=== PATIENT | female | born 1980 | race Caucasian/White ===

== ENCOUNTER 2017-02-21 10:05 | Emergency (ER) | payer MEDICAID ==
[~2017-02-21] VITALS: Ht 165.1 cm; Wt 88.5 kg
[~2017-02-21 10:05] MED LIST: ACE500 PO; AZIT500T47 PO; BUTA1CAP6 PO; CEPH-13 PO; CLIN300C99 PO; DIP5L PO; HYDR-4309 PO; LOR5/325 PO; METF-420 PO; OMEP40CA48 PO; OND4 PO; ONDA4TAB PO; OSE75 PO; PER PO; PHEN-580 PO; PREN-85 PO; PROC-35 PO; SERT-173 PO
--- NOTE | 2017-02-21 10:07 | ER Report ---
History and Physical Time Seen By MD: 10:06 HPI/ROS CC: Chest congestion with fever HPI: 36-year-old female with 2 day history of progressively getting worse of chest congestion and yellow productive cough. She has been taking Tylenol and ibuprofen for the body aches. Her pain on the body aches is a 7 out of 10. 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 She denies any nausea vomiting, diarrhea, slight shortness of breath. No nuchal rigidity. She does have a sore throat. Her appetite has been decreased but she has been taking fluids. Activity makes it worse rest makes it better. ROS: 12 point review of systems essentially negative other than what's mentioned in history of present illness. NURSES AND OLD MEDICAL RECORDS: Reviewed PMH: Reviewed SURGICAL HX: Reviewed FAMILY HX: Noncontributory SOCIAL HX: She denies illicit drugs. She was on. VITAL SIGNS: Reviewed CONSTITUTIONAL: 36-year-old female in moderate distress. PHYSICAL EXAM: HEENT: Pupils equal round reactive to light and accommodate, EOMI, tympanic membranes reddened and bulging with decreased light reflex. Lips dry mucous membranes moist gums nonbleeding uvula midline and rises equally with phonation, oropharynx noninjected, teeth intact. NECK: Neck supple, thyroid not appreciated, anterior and posterior cervical lymphadenopathy not appreciated. Trachea midline and rises equally with phonation. CARDIAC: S1-S2 regular rate rhythm no murmurs rubs or gallops. LUNGS: Lungs coarse bilaterally posteriorly in all [place]. Good air movement. ABDOMEN: Abdomen soft, nondistended, bowel sounds active in all 4 quadrants, no bruits noted, no CVA tenderness. MUSCULOSKELETAL: Strength 5 out of 5 x 4 extremities, no deformities noted. NEUROLOGIC: Patient alert and oriented by 3 Allergies: Coded Allergies: amoxicillin (Verified Allergy, Mild, UNKNOWN, 04/02/16) metoclopramide (Verified Allergy, Mild, HALLUCINATIONS, 04/02/16) promethazine (Verified Allergy, Mild, MAKES ME CRAZY, 04/02/16) Home Meds Discontinued Scripts Clindamycin Hcl (CLINDAMYCIN HCL) 300 Mg Capsule, 300 MG PO Q6H, #40 CAPSULE Prov:CORAZON EVANS MD 04/02/16 Hx Smoking: Yes (1/2 PPD) Smoking Status: Current: Every Day Smoker Exposure to Second Hand Smoke?: Yes Hx Substance Use Disorder: No Constitutional Vital Sign - Last 24 Hours 02/21/17 10:12 Temp 100.4 Pulse 98 Resp 14 B/P (MAP) 116/69 Pulse Ox 87 Medical Decision Making ED Course/Re-evaluation ED Course Patient most likely has lower respiratory tract infection. Patient placed on Zithromax and follow-up with PCP. Patient will plan and in agreement. Re-evaluation MDM pneumonia, pertussis, respiratory tract infection. This is most likely a lower respiratory tract infection. Decision to Disposition Date: Feb 21, 2017 Decision to Disposition Time: 11:09 Depart Departure Latest Vital Signs Vital Signs Date Time Temp Pulse Resp B/P (MAP) Pulse Ox O2 Delivery O2 Flow Rate FiO2 02/21/17 10:12 100.4 98 14 116/69 87 Impression: Primary Impression: Respiratory tract infection Condition: Condition Unchanged Disposition: HOME OR SELF-CARE Referrals: ROBERT QURESHI MD (PCP) New Scripts Azithromycin (ZITHROMAX) 250 Mg Tablet 0 PO QDAY, #6 TAB 1 Refill Prov: LINNETTE MARINELLI MD 02/21/17 Patient Instructions: Upper Respiratory Infection (ED) Additional Instructions: You have been Given Zithromax take as directed. Follow-up with your regular physician. I and the staff wanted to thank you for allowing us to take care of your needs today in the emergency department at [facility]. We have tried to answer all of your questions and concerns. Please feel free to return to the emergency department for any further concerns or unanswered questions. LINNETTE MARINELLI MD Feb 21, 2017 10:07
[2017-02-21] MEDS ORDERED: AZIT-1 PO (11:11)
[2017-02-21 11:18] VITALS: BP 118/52
== END 2017-02-21 11:28 | disposition home or self-care (01) ==
LOC: ER 10:05
DX: J98.8 Other specified respiratory disorders (principal)
CPT/HCPCS: 99283

== ENCOUNTER 2017-09-27 00:15 | Emergency (ER) | payer MEDICAID ==
[~2017-09-27 00:15] MED LIST changes: +AZIT-1 PO; -METF-420 PO; +METF-421 PO
--- NOTE | 2017-09-27 00:20 | ER Report ---
History and Physical Time Seen By MD: 00:20 HPI/ROS CHIEF COMPLAINT: Back pain HISTORY OF PRESENT ILLNESS: Patient is a 37-year-old female who presents to the emergency department for evaluation of lower back pain. Pain is severe in nature and made worse by movement better at rest. Pain is located along the right paraspinal muscle group. She does experience radiation of pain down the leg. She does feel some numbness into the leg as well. She denies any history of traumatic injury. She states that symptoms began approximately 4 days ago when she woke from sleep. Patient thinks that she may have slept wrong. She was seen at the [facility] and prescribed Flexeril which seems to help with some of her symptoms but the pain seems to be worsening. She denies any fevers or chills. She denies any urinary symptoms including frequency, burning with urination she denies any abnormal vaginal discharge. She has no personal history of cancer. REVIEW OF SYSTEMS: Respiratory: No cough, no dyspnea. Cardiovascular: No chest pain, no palpitations. Gastrointestinal: No vomiting, no abdominal pain. Musculoskeletal: Back pain Allergies: Coded Allergies: amoxicillin (Verified Allergy, Mild, UNKNOWN, 09/27/17) metoclopramide (Verified Allergy, Mild, HALLUCINATIONS, 09/27/17) promethazine (Verified Allergy, Mild, MAKES ME CRAZY, 09/27/17) Home Meds Active Scripts Hydrocodone Bit/Acetaminophen (HYDROCODON-ACETAMINOPHEN 5-325) 1 Each Tablet, 1 EACH PO Q4-6H Y for PAIN, #12 TAB 0 Refills TAKE ONE TABLET BY MOUTH EVERY 4-6 HOURS NEEDED FOR PAIN Prov:YASMANY COVINGTON MD 09/27/17 Reported Medications Metformin Hcl (METFORMIN HCL) 1,000 Mg Tablet, 1 TAB PO BID, TAB 09/27/17 Discontinued Scripts Azithromycin (ZITHROMAX) 250 Mg Tablet, 0 PO QDAY, #6 TAB 1 Refill Prov:LINNETTE MARINELLI MD 02/21/17 Past Medical/Surgical History Noncontributory towards his chief complaint Hx Smoking: Yes (1/2 PPD) Smoking Status: Current: Every Day Smoker Exposure to Second Hand Smoke?: Yes Hx Substance Use Disorder: No Constitutional Vital Sign - Last 24 Hours 09/27/17 00:19 Temp 98.0 Pulse 63 Resp 16 B/P (MAP) 110/59 Pulse Ox 95 O2 Delivery Room Air Physical Exam General appearance: alert no distress. Back: Thoracic spine has no spinal or paraspinal tenderness to palpation. Lumbar spine has no spinal tenderness moderateparaspinal tenderness Gastroinal: Abdomen is soft, non tender, no masses.. Skin: No lesions and no rashes. Vascular: Normal capillary refill and pulses to feet. Neurological: Motor function: leg strength normal and symmetric for both legs Sensory function: normal for all leg dermatomes. Straight leg raise negative to 70 degrees. Reflexes normal bilaterally on legs. [ ] DIFFERENTIAL DIAGNOSIS: After history and physical exam differential diagnosis was considered for back pain including muscular strain, herniated disc, intra- abdominal and renal causes. Medical Decision Making Data Points Laboratory Hematology Test 09/27/17 00:40 Urine Color Yellow Urine Clarity Clear Urine pH 5.0 pH (4.8-9.5) Urine Specific Hiram 1.021 Urine Protein Negative mg/dL (NEGATIVE) Urine Glucose (UA) Negative mg/dL (NEGATIVE) Urine Ketones Negative mg/dL (NEGATIVE) Urine Blood Negative (NEGATIVE) Urine Nitrite Negative (NEGATIVE) Urine Bilirubin Negative (NEGATIVE) Urine Urobilinogen 2.0 mg/dL (0.2-1.9) Urine Leukocyte Esterase Negative (NEGATIVE) Urine RBC 1 /HPF (0-2/HPF) Urine WBC 1 /HPF (0-5/HPF) Urine Squamous Epithelial Cells Many /LPF (</=FEW) Urine Calcium Oxalate Crystals Few /HPF (NONE) Urine Bacteria Negative /HPF (NONE-FEW) Urine Mucus Few /HPF (NONE-FEW) Urine HCG, Qualitative Negative (NEGATIVE) Chemistry Test 09/27/17 00:40 Urine Color Yellow Urine Clarity Clear Urine pH 5.0 pH (4.8-9.5) Urine Specific Hiram 1.021 Urine Protein Negative mg/dL (NEGATIVE) Urine Glucose (UA) Negative mg/dL (NEGATIVE) Urine Ketones Negative mg/dL (NEGATIVE) Urine Blood Negative (NEGATIVE) Urine Nitrite Negative (NEGATIVE) Urine Bilirubin Negative (NEGATIVE) Urine Urobilinogen 2.0 mg/dL (0.2-1.9) Urine Leukocyte Esterase Negative (NEGATIVE) Urine RBC 1 /HPF (0-2/HPF) Urine WBC 1 /HPF (0-5/HPF) Urine Squamous Epithelial Cells Many /LPF (</=FEW) Urine Calcium Oxalate Crystals Few /HPF (NONE) Urine Bacteria Negative /HPF (NONE-FEW) Urine Mucus Few /HPF (NONE-FEW) Urine HCG, Qualitative Negative (NEGATIVE) Urinalysis Test 09/27/17 00:40 Urine Color Yellow Urine Clarity Clear Urine pH 5.0 pH (4.8-9.5) Urine Specific Hiram 1.021 Urine Protein Negative mg/dL (NEGATIVE) Urine Glucose (UA) Negative mg/dL (NEGATIVE) Urine Ketones Negative mg/dL (NEGATIVE) Urine Blood Negative (NEGATIVE) Urine Nitrite Negative (NEGATIVE) Urine Bilirubin Negative (NEGATIVE) Urine Urobilinogen 2.0 mg/dL (0.2-1.9) Urine Leukocyte Esterase Negative (NEGATIVE) Urine RBC 1 /HPF (0-2/HPF) Urine WBC 1 /HPF (0-5/HPF) Urine Squamous Epithelial Cells Many /LPF (</=FEW) Urine Calcium Oxalate Crystals Few /HPF (NONE) Urine Bacteria Negative /HPF (NONE-FEW) Urine Mucus Few /HPF (NONE-FEW) Urine HCG, Qualitative Negative (NEGATIVE) EKG/Imaging Imaging FACILITY: [facility] [place] PATIENT NAME: Bella Bustillo : 1980 MR: [id number] V: [id number] EXAM DATE: ORDERING PHYSICIAN: YASMANY COVINGTON TECHNOLOGIST: Location: [facility] Patient: Bella Bustillo : 1980 Visit/Account:[id number] Date of Sevice: 09/27/2017 COMPUTED TOMOGRAPHY ABDOMEN AND PELVIS WITHOUT INTRAVENOUS CONTRAST DATE OF EXAM: 09/27/2017 1:21 AM INDICATION: Right flank pain. COMPARISON: Same-day lumbar spine radiographs. TECHNIQUE: Noncontrast abdomen and pelvis CT performed. Sagittal and coronal reconstructions were performed. One of the following dose optimization techniques was utilized in the performance of this exam: Automated exposure control; adjustment of the mA and/or kV according to the patient's size; or use of an iterative reconstruction technique. Specific details can be referenced in the facility's radiology CT exam operational policy. FINDINGS: Lung bases: Mild atelectasis. Liver: No acute abnormality or suspicious lesion. Prominent right lobe of the liver may represent a Yonathan's lobe variant. Gallbladder and bile ducts: Normal. Spleen: Normal. Pancreas: Normal. Adrenals: Normal. Kidneys, ureters and bladder: Normal. Retroperitoneum and aorta: Normal. GI tract, mesentery and peritoneum: Normal, including normal appendix. Uterus and adnexa: Normal. Bones and soft tissues: Question right greater than left mild sacroiliitis. No focal lesion. IMPRESSION: Question right greater than left mild sacroiliitis. Otherwise unremarkable. Report Dictated By: Levon Gallagher MD at 09/27/2017 2:06 AM Report E-Signed By: Leovn Gallagher MD at 09/27/2017 2:14 AM WSN:[id number] ED Course/Re-evaluation ED Course 09/27/2017 12:36:55 am plan at this time will be to perform urinalysis and urine test will also order lumbar films in order oral pain medication. Decision to Disposition Date: Sep 27, 2017 Decision to Disposition Time: 02:24 Depart Departure Latest Vital Signs Vital Signs Date Time Temp Pulse Resp B/P (MAP) Pulse Ox O2 Delivery O2 Flow Rate FiO2 09/27/17 00:19 98.0 63 16 110/59 95 Room Air Impression: Primary Impression: Back pain Condition: Improved Disposition: HOME OR SELF-CARE Referrals: ROBRET QURESHI MD (PCP) New Scripts Hydrocodone Bit/Acetaminophen (HYDROCODON-ACETAMINOPHEN 5-325) 1 Each Tablet 1 EACH PO Q4-6H Y for PAIN, #12 TAB 0 Refills TAKE ONE TABLET BY MOUTH EVERY 4-6 HOURS NEEDED FOR PAIN Prov: YASMANY COVINGTON MD 09/27/17 Patient Instructions: Acute Low Back Pain (ED) Problem Qualifiers Primary Impression: Back pain Back pain location: low back pain Chronicity: acute Back pain laterality: right Sciatica presence: with sciatica Sciatica laterality: sciatica of right side Qualified Codes: M54.41 - Lumbago with sciatica, right side YASMANY COVINGTON MD Sep 27, 2017 00:20
[2017-09-27] MEDS ORDERED: METF-421 PO (00:25)
--- NOTE | 2017-09-27 01:21 | RADIOLOGY IMAGING REPORT ---
FACILITY: [facility] PATIENT NAME: Bella Bustillo : 1980 MR: [id number] V: [id number] EXAM DATE: ORDERING PHYSICIAN: YASMANY COVINGTON TECHNOLOGIST: Location: [facility] [place] Patient: Bella Bustillo : 1980 Visit/Account:[id number] Date of Sevice: 09/27/2017 Lumbar spine Indication: Pain x4 days. No known injury. Comparison: None available FINDINGS: 3 views of the lumbar spine were obtained. There are 5 lumbar type vertebral bodies. There is no acute osseous or acute alignment abnormality. No evidence of spondylolisthesis or spondylolysis. The vertebral body heights appear well-maintained. Mild leftward tilting of the lumbar spine. Normal lordosis. No visualized degenerative changes. IMPRESSION: 1. No acute osseous or acute alignment abnormality of the lumbar spine. Report Dictated By: Sergey Solorio MD at 09/27/2017 1:17 AM Report E-Signed By: Sergey Solorio MD at 09/27/2017 1:18 AM WSN:[id number]
--- NOTE | 2017-09-27 02:18 | RADIOLOGY IMAGING REPORT ---
FACILITY: [facility] PATIENT NAME: Bella Bustillo : 1980 MR: [id number] V: [id number] EXAM DATE: ORDERING PHYSICIAN: YASMANY COVINGTON TECHNOLOGIST: Location: [facility] - [place], [place] Patient: Bella Bustillo : 1980 Visit/Account:[id number] Date of Sevice: 09/27/2017 COMPUTED TOMOGRAPHY ABDOMEN AND PELVIS WITHOUT INTRAVENOUS CONTRAST DATE OF EXAM: 09/27/2017 1:21 AM INDICATION: Right flank pain. COMPARISON: Same-day lumbar spine radiographs. TECHNIQUE: Noncontrast abdomen and pelvis CT performed. Sagittal and coronal reconstructions were pe rformed. One of the following dose optimization techniques was utilized in the performance of this e xam: Automated exposure control; adjustment of the mA and/or kV according to the patient's size; or u se of an iterative reconstruction technique. Specific details can be referenced in the facility's r adiology CT exam operational policy. FINDINGS: Lung bases: Mild atelectasis. Liver: No acute abnormality or suspicious lesion. Prominent right lobe of the liver may represent a Yonathan's lobe variant. Gallbladder and bile ducts: Normal. Spleen: Normal. Pancreas: Normal. Adrenals: Normal. Kidneys, ureters and bladder: Normal. Retroperitoneum and aorta: Normal. GI tract, mesentery and peritoneum: Normal, including normal appendix. Uterus and adnexa: Normal. Bones and soft tissues: Question right greater than left mild sacroiliitis. No focal lesion. IMPRESSION: Question right greater than left mild sacroiliitis. Otherwise unremarkable. Report Dictated By: Levon Gallagher MD at 09/27/2017 2:06 AM Report E-Signed By: Levon Gallagher MD at 09/27/2017 2:14 AM WSN:[id number]
[2017-09-27] MEDS ORDERED: LOR5/325 PO (02:26)
[2017-09-27] MEDS ORDERED: ACET/HYDROC 5/325MG TH ER ONLY 2 TAB/BOTTLE PO ONE (02:30)
[2017-09-27 02:44] VITALS: BP 104/64
== END 2017-09-27 02:49 | disposition home or self-care (01) ==
LOC: ER 00:51
DX: M54.41 Lumbago with sciatica, right side (principal)
CPT/HCPCS: 72100; 74176; 81001; 81025; 99284

== ENCOUNTER 2017-10-09 09:57 | Outpatient (RCR) | payer MEDICAID ==
[~2017-10-09 09:57] MED LIST changes: +CYCL10TA29 PO; +DICL-192 PO; +HYDR-385 PO; -METF-421 PO; +METF-452 PO
--- NOTE | 2017-10-09 17:29 | PT INITIAL EVALUATION ---
MEDICAL DIAGNOSIS: back pain TREATMENT DIAGNOSIS: same DATE OF ONSET: 09/24/17 SUBJECTIVE: Bella Bustillo presents to physical therapy with complaints of low back pain that started approximately 2 weeks ago. She reports that she works two jobs one in the morning and one at night. She reports that her morning job is physically demanding and that her pm job is a sedentary job. She reports that she felt some pain following work about 2 weeks ago and the pain stuck around and has not reduced. She rates her pain to be 8/10 to 10/10 depending on her activities. She reports that the pain is worse in the morning, with bending, sitting, standing, and walking. She reports that the pain feels better with lying and as the day progresses. She denies any unexplained weight loss, accidents, and surgery. She reports that an xray was performed and the results were normal. She reports increased pain with coughing, sneezing, and straining. She denies any abnormal bladder control with the low back pain. Pain location is Central spinous process of L4-5 and described as sharp, achy. Pain scale is 8 on a ten point pain scale. 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 ROM: Trunk AROM: flexion: major restriction with painful end feel. extension: major restriction with painful end feel. side gliding R: minimal restriction with normal end feel. side gliding L: moderate restriction with normal end feel. Palpation: TTP: central spinous process of L3-5 Sensation: L2-S2 intact Special Tests: Repeated extension: pain during the test and better following the test (potential centralization), flexion: pain during the test and worse following the test with peripheralization. side gliding R: pain during the test and worse following the test with peripheralization. side gliding L: pain during the test and worse following with peripheralization down into L foot. Mobility: Independent Gait: She demonstrated antalgic gait, decreased B step lengths, decreased pelvic rotation, increased base of support, and decreased velocity. ASSESSMENT: Bella will benefit from skilled physical therapy addressing the listed impairments to improve function and QOL. Her provisional classification is derangement that seems to respond well with extension based principles. Short Term Goals 2 weeks: Pt will demonstrate directional preference to improve function and QOL. 3 weeks: Pt will demonstrate centralized low back pain to improve function and QOL. 5 weeks: Pt will demonstrated abolished low back pain with full trunk AROM in all directions. 6 weeks: Pt will demonstrate full return to prior level of function to improve QOL. Patient's Goals figure out the pain and then reduce the pain PLAN: Patient to be seen for Manual Therapy/STM/MET Strengthening/condition Ice/Heat Range of Motion Spinal Stabilization Work Hardening/Cond Stretching Neuromuscular Re-ed Closed Chain Program Electrical Stim Posture/Body mechanics Gait Trg/Balance Trg Home Exercise Program Therapeutic Activities 2x/Week for 6 Weeks If you have any questions, comments, or concerns about this report or plan, please contact me at . Thank you, Iker Marlow, PT, DPT MTDD
== END 2017-10-09 18:00 | disposition home or self-care (01) ==
LOC: PT 09:57
PROVIDERS: ATTEND Internal Medicine
DX: M54.5 Low back pain (principal)
CPT/HCPCS: 97163

== ENCOUNTER 2017-11-23 21:22 | Emergency (ER) | payer MEDICAID ==
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
[2017-11-23] MEDS ORDERED: NS(*) 0.9% 1000 ML BAG 1,000 ML IV ONE (21:35)
[2017-11-23] MEDS ORDERED: ONDANSETRON 4 MG/2 ML VIAL IVP ONE (21:35)
[2017-11-23] MEDS ORDERED: KETOROLAC 30 MG/ML VIAL IVP ONE (21:35)
[2017-11-23] MEDS ORDERED: DEXAMETHASONE SOD PHOS 10MG/ML IVP ONE (21:35)
[2017-11-23] MEDS ORDERED: diphenhydrAMINE 50 MG/ML VIAL IVP ONE (21:35)
[2017-11-23] MEDS ORDERED: MORPHINE 4 MG/ML SDV IVP ONE (22:40)
[2017-11-23 23:04] VITALS: BP 138/85
== END 2017-11-23 23:06 | disposition home or self-care (01) ==
LOC: ER 21:34
DX: G43.901 Migraine, unspecified, not intractable, with status migrainosus (principal); R11.10 Vomiting, unspecified; F17.210 Nicotine dependence, cigarettes, uncomplicated
CPT/HCPCS: 96374; 96375; 99284; J1100; J1200; J1885; J2270; J2405; J7030

== ENCOUNTER → 2018-01-03 | Outpatient (CLI) | payer MEDICAID ==
[~2018-01-03] MED LIST changes: -HYDR-4309 PO; +HYDR-653 PO
--- NOTE | 2018-01-03 11:11 | RADIOLOGY IMAGING REPORT ---
FACILITY: [facility] - [place] PATIENT NAME: Bella Bustillo : 1980 MR: [id number] V: [id number] EXAM DATE: ORDERING PHYSICIAN: EDWARD RODAS TECHNOLOGIST: [place] [facility] [place] Bella Bustillo : 1980 Visit/Account:[id number] Date of Sevice: 01/03/2018 BRAIN W/O CONTRAST Comparisons: None. Additional pertinent history: Migraines for 20 years. TECHNIQUE: Multiplanar, multisequence brain MRI was performed without gadolinium contrast. FINDINGS: Sagittal midline structures and craniocervical junction: Negative. Midline shift: None. Ventricles: Negative. Brain parenchyma: Diffusion weighted imaging: Negative. Gradient sequence: Negative. T2 weighted FLAIR images: Small focus of increased T2 signal involving the juxtacortical white franki er of the high posterior left parietal lobe of doubtful clinical significance given the solitary natu re of this finding. Otherwise negative Extra-axial spaces: Negative. Dural venous sinuses and major arterial flow voids: Negative. Mastoid air cells and paranasal sinuses: Small mucous retention cyst involving the right maxillary si nus. Surrounding soft tissues and orbits: Negative. Impression: 1. No evidence of acute intracranial pathology. Report Dictated By: Regulo Allen MD at 01/03/2018 11:02 AM Report E-Signed By: Regulo Allen MD at 01/03/2018 11:06 AM WSN:[id number]
== END ==
LOC: MRI 01:23
PROVIDERS: ATTEND Nurse Practitioner Family
DX: G43.119 Migraine with aura, intractable, without status migrainosus (principal)
CPT/HCPCS: 70551

== ENCOUNTER 2018-09-10 00:45 | Emergency (ER) | payer SELFPAY ==
--- NOTE | 2018-09-10 00:47 | ER Report ---
History and Physical Time Seen By MD: 00:43 HPI/FRANCESCA CHIEF COMPLAINT: Migraine headache HISTORY OF PRESENT ILLNESS: 37 year-old female presents with a migraine headache since yesterday morning. She thinks it was the absence of caffeine. She did take much caffeine yesterday afternoon which helped for a little bit. She took Excedrin Migraine around 10 PM and vomited. Her headache got much worse then she presented to the ER. She notes photophobia, nausea and vomiting. She denies fever or chills or stiff neck. Patient had a normal brain MRI in 12/2017. Patient's been seen in the ER for migraines before 10/2017. Patient states she had a piercing placed in her ear to reduce the frequency of her migraines. REVIEW OF SYSTEMS: Respiratory: No cough, no dyspnea. Cardiovascular: No chest pain, no palpitations. Gastrointestinal: As above Musculoskeletal: No back pain. Allergies: Coded Allergies: amoxicillin (Verified Allergy, Mild, UNKNOWN, 09/10/18) metoclopramide (Verified Allergy, Mild, HALLUCINATIONS, 09/10/18) promethazine (Verified Allergy, Mild, MAKES ME CRAZY, 09/10/18) Home Meds Active Scripts Ondansetron 4 Mg Odt (ONDANSETRON 4 MG ODT) 4 Mg Tab.rapdis, 4 MG PO Q6H PRN for NAUSEA/VOMITING, #10 TAB 1 Refill Prov:SAHIL MACHADO Amelia DO 09/10/18 Discontinued Reported Medications Metformin Hcl (METFORMIN HCL) 1,000 Mg Tablet, 1 TAB PO BID, TAB 09/27/17 Reviewed Nurses Notes: Yes Old Medical Records Reviewed: Yes Hx Smoking: Yes (1/2 PPD) Smoking Status: Current: Every Day Smoker Exposure to Second Hand Smoke?: Yes Hx Substance Use Disorder: No Constitutional Vital Sign - Last 24 Hours 09/10/18 09/10/18 09/10/18 09/10/18 00:46 00:48 01:00 01:20 Temp 98.0 Pulse 79 ??? Resp 16 B/P (MAP) 126/72 (90) 126/72 108/60 (76) Pulse Ox 92 O2 Delivery Room Air 09/10/18 09/10/18 09/10/18 09/10/18 01:30 01:50 02:00 02:20 Pulse 56 B/P (MAP) 90/60 (70) 101/70 (80) Pulse Ox 95 90 09/10/18 09/10/18 02:30 02:35 Pulse 58 B/P (MAP) 98/53 (68) Pulse Ox 90 Intake and Output 09/09/18 09/09/18 09/10/18 15:02 23:02 07:02 Intake Total 1000 ml Balance 1000 ml Physical Exam Vital signs stable, afebrile, pulse ox normal General Appearance: The patient is alert, has no immediate need for airway protection and no signs of toxicity. Moderate distress Eyes: Pupils equal and round no pallor or injection.+ Photophobia ENT, Mouth: Mucous membranes are moist. Respiratory: There are no retractions, lungs are clear to auscultation. Cardiovascular: Regular rate and rhythm. Gastrointestinal: Abdomen is soft and non tender, no masses, bowel sounds normal. 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 Musculoskeletal: Neck is supple non tender. Extremities are nontender, nonswollen and have full range of motion. DIFFERENTIAL DIAGNOSIS: After history and physical exam differential diagnosis was considered for headache including but not limited to subarachnoid hemorrhage, migraine headache, tension headache and infectious causes such as meningitis, pharyngitis and sinusitis. Medical Decision Making ED Course/Re-evaluation Clinical Indication for ER IV: Hydration, IV Access ED Course Patient was admitted to an examination room. H&P was done. The differential diagnosis was considered. Patient with classical migraine for her. She is treated with IV fluid hydration, Zofran, Toradol, Benadryl 25 mg, Decadron 10 mg and morphine 2 mg. After observation. Approximate 2 hour. She's much improved. She would like to go home. She is advised to follow-up with primary care for further treatment of her migraines. Decision to Disposition Date: Sep 10, 2018 Decision to Disposition Time: 01:52 Depart Departure Latest Vital Signs Vital Signs Date Time Temp Pulse Resp B/P (MAP) Pulse Ox O2 Delivery O2 Flow Rate FiO2 09/10/18 02:35 58 90 09/10/18 02:30 98/53 (68) 09/10/18 00:48 98.0 16 Room Air Impression: Primary Impression: Migraine headache Condition: Improved Disposition: HOME OR SELF-CARE New Scripts Ondansetron 4 Mg Odt (ONDANSETRON 4 MG ODT) 4 Mg Tab.rapdis 4 MG PO Q6H PRN for NAUSEA/VOMITING, #10 TAB 1 Refill Prov: SAHIL MACHADO DO 09/10/18 Patient Instructions: Migraine Headache (ED) Additional Instructions: Follow-up with your primary care for further treatment of her migraines Problem Qualifiers Primary Impression: Migraine headache Migraine type: unspecified Status migrainosus presence: with status migrainosus Intractability: intractable Qualified Codes: G43.911 - Migra ine, unspecified, intractable, with status migrainosus SAHIL MACHADO DO Sep 10, 2018 00:47
[2018-09-10] MEDS ORDERED: DEXAMETHASONE SOD PHOS 10MG/ML IVP ONE (01:05)
[2018-09-10] MEDS ORDERED: KETOROLAC 30 MG/ML VIAL IVP ONE (01:05)
[2018-09-10] MEDS ORDERED: ONDANSETRON 4 MG/2 ML VIAL IVP ONE (01:05)
[2018-09-10] MEDS ORDERED: diphenhydrAMINE 50 MG/ML VIAL IVP ONE (01:05)
[2018-09-10] MEDS ORDERED: NS(*) 0.9% 1000 ML BAG 1,000 ML IV ONE (01:05)
[2018-09-10] MEDS ORDERED: MORPHINE 2 MG/ML SYR IVP ONE (02:00)
[2018-09-10 02:30] VITALS: BP 98/53
[2018-09-10] MEDS ORDERED: ONDA4TAB9 PO (02:43)
== END 2018-09-10 02:51 | disposition home or self-care (01) ==
LOC: ER 00:58
DX: G43.911 Migraine, unspecified, intractable, with status migrainosus (principal); F17.210 Nicotine dependence, cigarettes, uncomplicated
CPT/HCPCS: 96374; 96375; 99284; J1100; J1200; J1885; J2270; J2405; J7030